=== PATIENT | male | born 1970 | race Caucasian/White ===

== ENCOUNTER 2022-10-03 19:20 | Inpatient (IN) | payer BC, SELFPAY ==
[2022-10-03] VITALS (31 sets, daily range): BP systolic 121–165; BP diastolic 76–106; PULSE 52–78; RESP 11–20; TEMP 36.1–36.9; O2SAT 95–100; BMI 24.5
--- NOTE | ~2022-10-03 | CT_ITS ---
EXAMINATION: CT abdomen pelvis wo con DATE: 10/04/2022 18:06 INDICATION: Right lower quadrant abdominal pain. Right flank pain. TECHNIQUE: Computed tomography (CT) of the abdomen and pelvis was performed without intravenous contr ast. Automated exposure control and iterative reconstruction technique were employed. The dose-length product was 816.59 mGy-cm. COMPARISON: CT abdomen 04/19/2019 FINDINGS: The visualized portions of the lung bases demonstrate mild atelectasis. No pleural effusion . The heart size is normal. There are coronary artery calcifications. No pericardial effusion. The li jammie, gallbladder, spleen, pancreas, adrenal glands, and kidneys are normal. There is an umbilical her claudia containing fat. The bladder is distended. There is diverticulosis of the colon without evidence o f diverticulitis. The appendix is normal. There are no dilated loops of bowel. There is a subcutaneou s hematoma in right inguinal region. There is subcutaneous fat stranding in anterior right abdomen, w hich may be an injection site. There are no pathologically enlarged lymph nodes. There is no free int raperitoneal fluid. There is severe lumbar spondylosis. IMPRESSION: 1. Subcutaneous hematoma in right inguinal region. Reviewed, dictated and finalized at location A. PLUG PACKER
--- NOTE | ~2022-10-03 | CT_ITS ---
EXAMINATION: CTA chest PE protocol DATE: 10/03/2022 21:18 INDICATION: Left chest pain. TECHNIQUE: Computed tomography angiography (CTA) of the chest was performed with 100 mL Omnipaque-350 intravenous contrast timed to evaluate the pulmonary arteries. Coronal maximum intensity projection 3D-reconstructions were created by the technologist. Automated exposure control and iterative reconst ruction technique were employed. The dose-length product was 517.05 mGy-cm. COMPARISON: CT abdomen 04/19/2019 FINDINGS: There is mild atelectasis bilaterally. A calcified left lung nodule and calcified left maureen r and mediastinal lymph nodes are consistent with old granulomatous disease. No pleural effusion. The re is no pulmonary embolus. There is mild thoracic spondylosis. IMPRESSION: 1. No pulmonary embolus. Reviewed, dictated and finalized at location A. ION JAILER IMPRESSION: 1. No pulmonary embolus.
--- NOTE | ~2022-10-03 | XR_ITS ---
EXAMINATION: XR chest 2V DATE: 10/03/2022 20:19 INDICATION: Chest pain. TECHNIQUE: Frontal and lateral views of the chest were obtained on 3 radiographs. COMPARISON: CT abdomen 04/19/2019 FINDINGS: The chest demonstrates clear lungs without pneumonia, pleural effusion, or pneumothorax. Th e heart size is normal. Calcified mediastinal lymph nodes are consistent with old granulomatous disea se. IMPRESSION: 1. No acute cardiopulmonary disease. Reviewed, dictated and finalized at location A. IGINAL LIAISON OFFICER
--- NOTE | 2022-10-03 19:24 | ECG_ITS ---
Measurements Intervals [place] Rate: 71 P: 24 AL: 152 QRS: 36 QRSD: 98 T: 74 QT: 399 QTc: 434 Interpretive Statements SINUS RHYTHM SUBTLE INFERIOR ST ELEVATION WITH SOME HIGH LATERAL RECIPROCAL ST DEPRESSION- CONSIDER ACUTE INJURY OR EARLY REPOLARIZATION ABNORMALITY ABNORMAL ECG NO PREVIOUS ECG AVAILABLE FOR COMPARISON Electronically Signed On 10-04-2022 7:53:48 CORN COOKER by Alex Orozco D.O.
[2022-10-03] MEDS: NITROGLYCERIN SL 0.4 MG TABLET SUBLINGUAL (19:33)
[2022-10-03] MEDS: ASPIRIN 81 MG CHEWABLE TABLET 324 MG PO (19:35)
[2022-10-03 19:36] LABS: Basophils Percent Auto 0.6 % (0.2-1.2); Eosinophils Percent Auto 0.6 % (0-4.4); Hematocrit 42.5 % (42.0-52.0); Hemoglobin 14.6 g/dL (14.0-18.0); Immature Granulocyte Absolute 0.01 K/mm3 (0.00-0.031); Immature Granulocyte Percent A 0.2 % (0-0.5); Lymphocytes Absolute Auto 2.28 K/mm3 (0.9-3.2); Lymphocytes Percent Auto 36.1 % (18.3-44.2); Mean Corpuscular HGB Conc 34.4 g/dl (32-36); Mean Corpuscular Hemoglobin 28.5 pg (26-34); Mean Platelet Volume 8.8 fl (7.4-10.4); Monocytes Absolute Auto 0.6 K/mm3 (0.1-0.6); Monocytes Percent Auto 9.3 % (2.6-8.5); Neutrophils Absolute Auto 3.4 K/mm3 (1.3-6.7); Neutrophils Percent Auto 53.2 % (45.5-73.1); Platelet Count Result 177 k/mm3 (150-375); Red Blood Count 5.12 M/mm3 (4.6-6.20); Red Cell Distribution Width 14.2 % (11.5-14.5); White Blood Count 6.3 K/mm3 (4.5-10.0)
--- NOTE | 2022-10-03 19:38 | PC.NURSE ---
2nd nitro tab given SL.
[2022-10-03] MEDS: MORPHINE SULFATE (*CRX) 2 MG/ML INJ IV PUSH (19:40)
--- NOTE | 2022-10-03 19:43 | ECG_ITS ---
Measurements Intervals [place] Rate: 46 P: [place]: 0 QRS: 48 QRSD: 122 T: 36 QT: 447 QTc: 395 Interpretive Statements JUNCTIONAL RHYTHM CHANGES TO SINUS BRADYCARDIA ABNORMAL ECG COMPARED TO ECG 10/03/2022 19:26:16 JUNCTIONAL RHYTHM CHANGES TO SINUS BRADYCARDIA NOW PRESENT ST SEGMENT CHANGES RESOLVED Electronically Signed On 10-04-2022 7:56:10 DESIGN EDITOR by Alex Orozco D.O.
[2022-10-03 19:47] LABS: Alanine Aminotransferase 25 U/L (6-50); Albumin Level 4.5 g/dL (3.5-5.1); Alkaline Phosphatase 65 U/L (38-126); Anion Gap 8 mmol/L (8-16); Aspartate Amino Transferase 32 U/L (17-59); Bilirubin,Total 0.6 mg/dL (0.2-1.3); Blood Urea Nitrogen 17 mg/dL (9-20); Calcium 9.6 mg/dL (8.4-10.2); Carbon Dioxide 24 mmol/L (22-30); Chloride 103 mmol/L (98-107); Estimated CRCL calculation 70 ml/min; Estimated Glomerular Filt Rate 58; Glucose 103 mg/dL (65-110); Lipase 132 U/L (23-300); Potassium 3.6 mmol/L (3.4-5.0); Sodium 135 mmol/L (137-145)
[2022-10-03 19:54] LABS: INR 1.1; Prothrombin Time 13.6 Seconds (11.1-14.7)
[2022-10-03 19:55] LABS: Partial Thromboplastin Time 23.6 SECONDS (22.3-36.8)
[2022-10-03 19:59] LABS: Troponin I < 0.012 ng/mL (0.000-0.034)
--- NOTE | 2022-10-03 20:06 | PC.NURSE ---
Called lab to add on d-dimer.
--- NOTE | 2022-10-03 20:11 | PC.NURSE ---
Patient taken to xray via stretcher.
[2022-10-03 20:28] LABS: D Dimer 0.48 ug/mL (<0.48)
[2022-10-03] MEDS: MORPHINE SULFATE (*CRX) 4 MG/ML INJ IV PUSH (20:54)
--- NOTE | 2022-10-03 21:06 | PC.NURSE ---
Patient taken to CT via stretcher at this time.
[2022-10-03] MEDS: SODIUM CHLORIDE 0.9% IV 1,000 ML 999 ML IV CONT (21:33)
--- NOTE | 2022-10-03 21:41 | PM.IMHP ---
H&P: HPI History of Present Illness Date/Time: 10/03/22 21:41 Chief Complaint: Chest pain Narrative: This is a 52-year-old male with past medical history significant for GERD, hypertension, coronary artery disease. Patient presents to the emergency room due to chest pain localized to the precordial area with radiation to the shoulder the arm and back 0 care who while strenuous physical activity core? sexual activity patient denies use of Viagra, denies any lightheadedness, had some nausea, but no vomiting, had diaphoresis pain lasted for 3 hours and it is ongoing, not worsening, denies any cough, sputum production, no fevers, no rigors, no chills, no syncope or near syncope no night sweats, pain is reproducible on physical exam, nitroglycerin did not relieve the pain. Patient has been in his usual state of health up until this point. Preliminary workup has been essentially nonrevealing. Patient is been admitted for further evaluation management and treatment. Review of Systems Review of Systems: Chest pain in the precordial area Constitutional: Constitutional: Denies chills, Denies fever(s), Denies malaise and Denies night sweats Eyes: Eyes: Denies change in vision ENT: Denies dysphagia, Denies nasal discharge and Denies odynophagia Cardiovascular: Cardiovascular: Reports chest pain, Denies syncope, Denies rapid heart rate, Denies irregular heart rhythm, Denies lightheadedness, Reports radiating jaw, neck or arm pain, Denies palpitations and Denies dyspnea Respiratory: Respiratory: Denies chest congestion, Denies cough, Denies pain on inspiration, Denies dyspnea and Denies wheezing Gastrointestinal: Gastrointestinal: Denies abdominal pain, Denies dyspepsia, Denies heartburn, Denies diarrhea, Denies nausea and Denies vomiting Genitourinary: Genitourinary: Denies dysuria Musculoskeletal: Musculoskeletal: Denies joint swelling and Denies muscle weakness Integumentary/Breasts: Skin/Breast: Denies rash Neurologic: Denies vertigo, Denies dizziness, Denies focal weakness, Denies radicular pain and Denies Sensory deficit (Neuro) Endocrine: Endocrine: Denies cold intolerance, Denies flushing, Denies heat intolerance, Denies polyphagia, Denies polydipsia and Denies palpitations Hematologic/Lymphatic: Hematologic/Lymphatic: Reports no additional hematologic/lymphatic complaints and Reports as per HPI Allergic/Immunologic: Allergic/Immunologic: Reports no additional allergic/immunologic complaints and Reports as per HPI [facility] Family History Family History (Updated 10/03/22 @ 23:40 by Jillian Bull RN) Grandparent Diabetes mellitus Mother Lung cancer Sibling Lung cancer Social History Social History Smoking packs per day: 2 Smoking cigarettes per day: 40.0 Years smoked: 30 Smoking pack-years: 60.00 Smoking status: Former smoker Tobacco type: cigarettes Second hand tobacco smoke exposure: Yes Smoking end date: 05/07/17 Alcohol intake: former Drinks per week: 7 Substance use: former Substance use type: does not use Other substance usage details: recovering addict Lack of Transportation: No Lack of Food: Never True Current Housing: I Have Housing Concerned About Future Housing: No Difficulty Paying Gas/Electric Bills: No Difficulty Paying for Meds: No Currently Unemployed: No Education: High School Diploma/GED Difficulty w/ Childcare or Family Care: No Spiritual care concerns: No Meds Home Medications and Allergies Home Medications Medication Instructions Recorded Confirmed Type allopurinol 100 mg tablet mg 10/03/22 History esomeprazole magnesium 20 mg mg 10/03/22 History capsule,delayed release (Nexium) ezetimibe 10 mg tablet mg 10/03/22 History gabapentin 100 mg capsule mg 10/03/22 History metoprolol tartrate 50 mg tablet mg 10/03/22 History spironolactone 50 mg tablet mg 10/03/22 History Allergies Allergy/AdvReac Type Severity Reaction St
[2022-10-03] MEDS: HYDROmorphone HCL INJ (*CRX) 1 MG/ML SYR IV PUSH (21:46)
--- NOTE | 2022-10-03 21:50 | ED.CHESTPAIN ---
HPI - Chest Pain General Chief Complaint: Chest Pain Stated Complaint: Chest Pain, arm pain Time Seen by Provider: 10/03/22 19:29 History of Present Illness HPI narrative: 52-year-old male presented emergency department for evaluation of cute onset of left-sided chest pain just prior to arrival. Patient states after he was having sexual activity he reported onset of the chest pain. Patient denied any chest pain or shortness of breath during exertion. Patient does have a history of coronary disease. Patient had a stress test back in 2018 that showed changes. Patient had an Angiocath in 2018 but had no stents placed. Patient reports he had a negative stress test about a year and a half ago that was read as normal. Patient follows up with cardiology at [facility]. Patient also reports a prior history of pulmonary embolisms and is no longer on blood thinners. Related Data Home Medications Medication Instructions Recorded Confirmed allopurinol 100 mg tablet mg 10/03/22 esomeprazole magnesium 20 mg mg 10/03/22 capsule,delayed release (Nexium) ezetimibe 10 mg tablet mg 10/03/22 gabapentin 100 mg capsule mg 10/03/22 metoprolol tartrate 50 mg tablet mg 10/03/22 spironolactone 50 mg tablet mg 10/03/22 Allergies Allergy/AdvReac Type Severity Reaction Status Date / Time No Known Allergies Allergy Verified 10/03/22 19:25 Review of Systems Review of Systems: CONSTITUTIONAL: Denies fever, chills, or sweats. EYES: Denies visual changes, redness, or discharge. ENT: Denies rhinorrhea, congestion, sore throat, or otalgia. CARDIOVASCULAR: See HPI RESPIRATORY: Denies cough or dyspnea. GASTROINTESTINAL: Denies abdominal pain, nausea, vomiting, or diarrhea. GENITOURINARY: Denies dysuria or hematuria. SKIN: Denies rash or itching. MUSCULOSKELETAL: Denies back pain, joint pain, or myalgia. NEUROLOGIC: Denies headache, numbness, or weakness. Exam Narrative: APPEARANCE: Well appearing, no pain, no distress, well-nourished. HEAD: normocephalic, atraumatic. EYES: PERRLA/EOMI, conjunctivae clear. NOSE: Normal no drainage NECK: Supple. No adenopathy, no masses. RESPIRATORY: Airway patent, respirations nonlabored. Clear to auscultation bilaterally, no rales, rhonchi, wheezing. CARDIOVASCULAR: Regular rate and rhythm without murmurs rubs or gallops. ABDOMINAL: Soft, nontender, nondistended, normal bowel sounds MUSCULOSKELETAL: Moves all extremities. Strength/ROM intact, No edema, No calf tenderness. NEURO: Alert. Cranial nerves II through XII intact. Grossly intact SKIN: Warm, dry. Normal Color Course Course Emergency Course: Patient's initial EKG did show some nonspecific ST changes. No evidence of acute STEMI. Repeat EKG 30 minutes later improvement of these ST changes possibly due to lead placement. Patient was treated with aspirin and nitro and had no improvement of his pain from the nitro. Patient's D-dimer was at the high end of normal but due to his prior history of pulmonary embolisms a CTA was ordered to rule out PE. CT was negative for pulmonary embolism. Patient's troponin was negative. Due to his significant history and description of his symptoms I discussed case with hospitalist patient was admitted for further cardiac rule out. Patient and family were updated on the results of the work-up and were comfortable with the plan for admission. Patient's pain was improved with morphine and Dilaudid. Patient was stable at time of admission. Patient was admitted to the IMU. Vital Signs Vital signs: Vital Signs Temperature 98.0 F 10/03/22 19:25 Pulse Rate 68 10/03/22 19:25 Respiratory Rate 16 10/03/22 19:25 Blood Pressure 165/106 H 10/03/22 19:25 Pulse Oximetry 98 10/03/22 19:25 Temperature 98.4 F 10/03/22 22:26 Pulse Rate 59 L 10/03/22 22:26 Respiratory Rate 17 10/03/22 22:26 Blood Pressure 139/83 10/03/22 22:26 Pulse Oximetry 98 10/03/22 22:26 MDM - Chest Pain La
--- NOTE | 2022-10-03 22:03 | PC.NURSE ---
Patient informs this nurse that I am a recovering drug addict, I'm sober now, 8years. ERP notified.
--- NOTE | 2022-10-03 22:38 | ADMGEN ---
This patient, Ozzie Lai, was admitted to IMU Room 210-01 at 2238. Patient/family oriented to hospital policies and general routines including ID bracelet, bed and alarms, visiting hours, pain management, procedures, bathroom and other care routines, personal items, smoking policy, room service/diet, and visiting hours. Information on how to activate the Rapid Response Team has been discussed. Patient/Family are encouraged to report perceived risks to care and to ask questions if they do not understand what they are told or what they should do.
[2022-10-03 23:14] LABS: Troponin I 0.064 ng/mL (0.000-0.034)
--- NOTE | 2022-10-03 23:32 | ECG_ITS ---
Measurements Intervals [place] Rate: 57 P: 38 DE: 163 QRS: 35 QRSD: 98 T: 33 QT: 429 QTc: 420 Interpretive Statements SINUS BRADYCARDIA BASELINE ARTIFACT- I, II, III, AVR, AVL, AVF BORDERLINE ECG COMPARED TO ECG 10/03/2022 19:47:27 NO SIGNIFICANT CHANGES Electronically Signed On 10-04-2022 7:56:32 PERMASTONE APPLICATOR by Alex Orozco D.O.
[2022-10-04] VITALS (68 sets, daily range): BP systolic 105–158; BP diastolic 58–98; PULSE 47–107; RESP 8–39; TEMP 36.1–36.9; O2SAT 96–100
[2022-10-04] MEDS: ENOXAPARIN 100 MG/ML SYRINGE 89 MG SUB-Q (00:38)
[2022-10-04] MEDS: diphenhydrAMINE HCl CAP 25 MG CAPSULE 50 MG PO ×3 (00:39→22:57)
[2022-10-04] MEDS: HYDROmorphone HCL INJ (*CRX) 1 MG/ML SYR IV PUSH ×4 (00:40→13:05)
--- NOTE | 2022-10-04 01:30 | ECG_ITS ---
Measurements Intervals [place] Rate: 52 P: 31 VT: 157 QRS: 37 QRSD: 105 T: 41 QT: 444 QTc: 415 Interpretive Statements SINUS BRADYCARDIA BASELINE ARTIFACT- I, II, III, AVR, AVL, AVF BORDERLINE ECG COMPARED TO ECG 10/03/2022 23:37:19 NO SIGNIFICANT CHANGES Electronically Signed On 10-04-2022 7:56:48 MOSAIC TECHNICIAN by Alex Orozco D.O.
--- NOTE | 2022-10-04 04:49 | ECG_ITS ---
Measurements Intervals [place] Rate: 64 P: 25 DC: 162 QRS: 5 QRSD: 97 T: 14 QT: 414 QTc: 428 Interpretive Statements SINUS RHYTHM CONSIDER INFERIOR INFARCT, AGE INDETERMINATE BASELINE ARTIFACT- I, II, AVR, AVL ABNORMAL ECG COMPARED TO ECG 10/04/2022 01:16:31 SINUS RHYTHM NOW PRESENT CONSIDER INFERIOR INFARCT, AGE INDETERMINATE NOW PRESENT Electronically Signed On 10-04-2022 7:58:03 MEDICAL CLAIMS SPECIALIST by Alex Orozco D.O.
[2022-10-04] MEDS: METOPROLOL TARTRATE 25 MG TABLET PO ×2 (05:58→21:27)
[2022-10-04] MEDS: ASPIRIN 81 MG CHEWABLE TABLET 324 MG PO (05:58)
[2022-10-04] MEDS: NITROGLYCERIN OINTMENT 1 INCH DOSE TRANSDERM (05:59)
[2022-10-04] MEDS: HEPARIN SODIUM 5,000 UNITS/ML VIAL 5000 UNITS IV PUSH (06:00)
[2022-10-04] MEDS: HEPARIN SOD/D5W 100 UNITS/ML 25,000 UNITS/250 ML BAG 10 UNITS IV CONT (06:03)
[2022-10-04 06:20] LABS: Basophils Percent Auto 0.5 % (0.2-1.2); Eosinophils Percent Auto 0.5 % (0-4.4); Hematocrit 37.7 % (42.0-52.0); Hemoglobin 12.8 g/dL (14.0-18.0); Immature Granulocyte Absolute 0.02 K/mm3 (0.00-0.031); Immature Granulocyte Percent A 0.3 % (0-0.5); Lymphocytes Absolute Auto 2.02 K/mm3 (0.9-3.2); Lymphocytes Percent Auto 34.9 % (18.3-44.2); Mean Corpuscular Hemoglobin 28.4 pg (26-34); Mean Corpuscular Volume 83.6 fl (80-100); Mean Platelet Volume 8.8 fl (7.4-10.4); Monocytes Absolute Auto 0.6 K/mm3 (0.1-0.6); Monocytes Percent Auto 9.5 % (2.6-8.5); Neutrophils Absolute Auto 3.1 K/mm3 (1.3-6.7); Neutrophils Percent Auto 54.3 % (45.5-73.1); Platelet Count Result 156 k/mm3 (150-375); Red Blood Count 4.51 M/mm3 (4.6-6.20); Red Cell Distribution Width 14.2 % (11.5-14.5); White Blood Count 5.8 K/mm3 (4.5-10.0)
[2022-10-04 06:36] LABS: INR 1.2; Prothrombin Time 14.8 Seconds (11.1-14.7)
[2022-10-04 06:39] LABS: Partial Thromboplastin Time 153.8 SECONDS (22.3-36.8)
--- NOTE | 2022-10-04 08:03 | PM.CNCAR ---
Assessment and Plan Assessment and plan (1) Non-ST elevation CO (NSTEMI): Code(s): I21.4 - Non-ST elevation (NSTEMI) myocardial infarction Status: Acute Plan This is a 52-year-old man with hypertension dyslipidemia and a known history of coronary artery disease which is been treated medically. He presents to the hospital with chest pain and clearly has non ST elevation CO. he has developed some small inferior Q-waves on the most recent ECG. After being notified about this this morning I started aspirin, anticoagulation, beta-blockers and nitrates. He continues to have mild ongoing chest pain. I will therefore recommend bringing him to the fish farm laborer this morning for angiography and hopeful revascularization Adama Nails MD [facility] History of Present Illness History of Present Illness Consult date/time: 10/04/22 08:03 Reason For Visit: chest pain Narrative: This is a 52-year-old patient I am seeing at the request of the hospitalist because of acute coronary syndrome/non ST elevation CO. The patient presented to our hospital's emergency room last evening with some chest pain that began at about 7:00 p.m. after sexual activity at his home. The patient states he was having a heavy pressure-like discomfort in the left precordium with radiation into the left arm. The discomfort was not associated with any air hunger or diaphoresis. The patient states he was concerned about this situation because he is known to have some coronary disease and after short time he came to the emergency room to be evaluated. In the emergency department he was treated with aspirin and nitroglycerin with some improvement in the chest pain but not resolution. His electrocardiogram was not impressively abnormal he was admitted to the hospital for further evaluation. Through the evening he has had waxing and waning chest discomfort. He has had a total of 4 troponin levels which have risen gradually the last sample done a short time ago was just over 2.9. In this setting I am seeing him in consultation. The patient states that he was found to have coronary disease in 2018 he was evaluated by appliance service supervisor up in the [facility]. He was hospitalized that year with chest pain at that hospital not found to have any cardiac problems he was found to have a pulmonary embolism. He was treated with systemic anticoagulation for 6 months and after that it was determined that he should undergo a coronary angiogram. He was free informed of mild, 50% lesions in 2 of his coronary arteries for which medical therapy was appropriately recommended. He does not have any family history of early coronary artery disease he is a former cigarette smoker having quit about 15 years ago he says that he used to abuse alcohol and illicit drugs as well but not for many years. He does carry the diagnosis of hypertension and dyslipidemia. He works at the [employer] in [place]. His initial electrocardiogram was largely unremarkable. The 2nd ECG interestingly demonstrated some AV node dysfunction with isorhythmic AV dissociation. The subsequent EKGs have demonstrated the development of small inferior Q-waves. Review of Systems Constitutional: Constitutional: Reports no additional constitutional complaints Eyes: Eyes: Reports no additional eye complaints ENT: Reports system reviewed and no additional complaints, except as documented Cardiovascular: Cardiovascular: Reports as per HPI Respiratory: Respiratory: Reports no additional respiratory complaints Gastrointestinal: Gastrointestinal: Reports no additional gastrointestinal complaints Musculoskeletal: Musculoskeletal: Reports no additional musculoskeletal complaints Integumentary/Breasts: Skin/Breast: Reports system reviewed and no additional complaints, except as docu Neurologic: Reports system reviewed and no additional complaints, except as documented Endocrine: Endocrine: Reports no additional endocrine complaints
[2022-10-04] MEDS: TICAGRELOR 90 MG TABLET 180 MG PO (08:41)
--- NOTE | 2022-10-04 10:09 | ECG_ITS ---
Measurements Intervals [place] Rate: 63 P: 28 [place]: 146 QRS: -22 QRSD: 101 T: 1 QT: 444 QTc: 456 Interpretive Statements SINUS RHYTHM INFERIOR INFARCT, AGE INDETERMINATE ABNORMAL ECG COMPARED TO ECG 10/04/2022 04:54:46 NO SIGNIFICANT CHANGES Electronically Signed On 10-04-2022 15:18:57 STEEL DIE PRESS SET UP OPERATOR by Alex Orozco D.O.
--- NOTE | 2022-10-04 10:14 | WPDCARDPROC ---
Cardiac Cath Procedure Note Date of procedure:: 10/04/22 Performing physician:: Adaam Nails MD Indication:: non ST-elevation AL Brief clinical history:: this is a 52-year-old man with history of hypertension and dyslipidemia who presents to the hospital last evening with an episode of chest pain following physical exertion. He in the emergency room was felt to have a benign-appearing ECG and troponin levels were negative. In the IMU he has had ongoing mild chest discomfort through the evening and troponin levels have trended upward to 2.9. ECG has developed small inferior Q-waves. Catheterization has been recommended in this setting Procedure Procedure performed:: coronary angiography left ventriculography PCI(RAYSA) to the proximal right coronary artery Sedation/Medication given:: fentanyl 50 mg Versed 2 mg case start time 937 case end time 10:04 a.m. sedation provided by Doris Rios RN, trained observer Access site:: right femoral artery Estimated blood loss:: 25 cc Procedure note:: patient was brought to the cardiac catheterization lab as described above he was having moderate 5/10 chest pain. He was otherwise in no significant distress. The right femoral triangle was prepared and draped in the usual fashion. Anesthesia was provided with 1% lidocaine infiltrated locally. Using the modified Seldinger technique a 6 Mauritian vascular sheath was placed. I then used a 5 Mauritian angled pigtail catheter to measure left-sided hemodynamics and inject the left ventriculogram in SZYMANSKI projection. Following this A standard 5 Mauritian FL4 catheter was used to engage and inject the left coronary artery in multiple multiple projections the 5 Mauritian JR4 catheter was used to engage and inject the right coronary artery. The cineangiograms were then reviewed and PCI of right coronary artery was recommended and carried out as detailed below. Prior to PCI the patient was anticoagulated with Angiomax bolus and infusion. He had already received aspirin and 180 mg of Brilinta on the floor after I saw him in consultation. For this reason he did not receive any additional anti-platelet therapy in the laborer car barn. Following PCI as described below the sheath was sutured into position the patient will be taken to the ICU for post mi/PCI recovery. Procedure was uncomplicated there were no evident signs of groin hematoma upon leaving the cardiac catheterization lab. Findings:: Hemodynamics: Central aortic pressure is 86 over 60 left ventricle 86/10 end-diastolic 15. There was no systolic gradient on pullback across the aortic valve. Left ventricle: The base of the inferior wall is akinetic the remainder of the LV contracts well the global ejection fraction is visually estimated to be 50-55%. The left main coronary artery is widely patent the left anterior descending is a large caliber vessel. There is a high-grade stenosis in the LAD of 80-90% this is located just following the origin of the 1st diagonal branch. The remainder of the LAD is free of significant disease. The circumflex is a large caliber vessel giving rise to the marginal branches the circumflex system angiographically has no significant coronary disease right coronary artery is large caliber and dominant to the posterior circulation is 100% occluded in the 1st portion. The right coronary artery receives scant collateral filling from the left coronary on review of the angiograms. Intervention: The RCA was engaged using a 6 Mauritian JR4 guiding catheter. I used a 0.014 BMW coronary wire to probe the occlusion segment and then successfully traverse that into the RCA. The lesion was pre-dilated using a 3 x 20 mm standard PTCA balloon at nominal pressure which restored good flow in the right coronary restore showing no significant disease distal to this and into the RPDA and RPL branches. The wire was in a small sub branch of the right coronary this was then withdr
--- NOTE | 2022-10-04 10:22 | SUR.OPER ---
Dr. Nails on phone giving report to flow coordinator.
--- NOTE | 2022-10-04 10:25 | SUR.OPER ---
O2 sats 97-98% on room air prior to leaving lab animal technologist.
--- NOTE | 2022-10-04 10:42 | PC.NURSE ---
Report given at bedside at 1030 by KENDRICK Mcmanus with the cardiac solder making laborer team.
--- NOTE | 2022-10-04 10:44 | ADMGEN ---
This patient, Ozzie Lai, was admitted to Intensive Care Unit-6 at 1033. Patient/family oriented to hospital policies and general routines including ID bracelet, bed and alarms, visiting hours, pain management, procedures, bathroom and other care routines, personal items, smoking policy, room service/diet, and visiting hours. Information on how to activate the Rapid Response Team has been discussed. Patient/Family are encouraged to report perceived risks to care and to ask questions if they do not understand what they are told or what they should do.
--- NOTE | 2022-10-04 10:45 | PC.NURSE ---
Cardiopulmonary Rehab Services flyer was given to patient.
[2022-10-04] MEDS: SODIUM CHLORIDE 0.9% IV 1,000 ML 125 ML IV CONT (10:49)
--- NOTE | 2022-10-04 10:54 | SUR.OPER ---
1038 Dr. Nails made aware that patient's girlfriend and daughter were in ICU waiting waiting for an update. He was also previously asked to address transfer orders as patient was an IMU patient and being moved to ICU post PCI.
--- NOTE | 2022-10-04 10:56 | WPDCNINT ---
Assessment and Plan Assessment and plan (1) Non-ST elevation [place] (NSTEMI): Code(s): I21.4 - Non-ST elevation (NSTEMI) myocardial infarction Status: Acute Assessment and Plan: Status post cardiac catheterization which showed 1. ? ischemic heart disease with acute myocardial infarction patient was found angiographically of total occlusion of the large dominant right coronary artery surprisingly not more dramatic electrocardiographic changes on presentation. 2.? ? Successful revascularization of this RCA stenosis using the drug-eluting stent described above with an excellent angiographic result and TIGRE 3 flow into the distal RCA.? The RV acute marginal branch remains occluded 3. ? high-grade unrelated stenosis in the proximal LAD as described above. 4.? ? Posterior /inferior hypokinesia global ejection fraction 50-55% ICU telemetry monitoring Echocardiogram Aspirin, ARB beta-jon, Brilinta, Aldactone, statin and Zetia (2) GERD (gastroesophageal reflux disease): Code(s): K21.9 - Gastro-esophageal reflux disease without esophagitis Status: Acute Assessment and Plan: Continue PPI (3) CAD (coronary artery disease): Code(s): I25.10 - Atherosclerotic heart disease of [place] coronary artery without angina pectoris Status: Acute Assessment and Plan: See above (4) Hypertension: Code(s): I10 - Essential (primary) hypertension Status: Acute Assessment and Plan: His beta-jon dose has been decreased and he has been started on low-dose losartan Aldactone will be continued (5) CKD (chronic kidney disease): Code(s): N18.9 - Chronic kidney disease, unspecified Status: Acute Assessment and Plan: Patient reports history of CKD His presentation creatinine was 1.3 Continue IV fluids for renal protection from contrast Check BMP and monitor urine output/electrolytes Plan DVT prophylaxis -patient received Angiomax and Lovenox. 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 Patient reported that his chest pain localized to the precordial area with radiation to the shoulder, left arm and back with started during strenuous ? sexual activity but patient denied use of Viagra. He denied any lightheadedness, had some nausea, but no vomiting, had diaphoresis. Pain was 9/10 achy and pressure. His initial troponin was negative and EKG was not suggestive of STEMI. He was admitted to step-down unit. He was given and a chest but his pain persisted. His serial troponin came back elevated. Cardiology was consulted. Patient was started on heparin infusion along with other cardiac medications. Patient's EKG later showed inferior lead Q-waves. Patient was taken to cardiac catheterization lab and underwent a catheterization which showed 1. ? ischemic heart disease with acute myocardial infarction patient was found angiographically of total occlusion of the large dominant right coronary artery surprisingly not more dramatic electrocardiographic changes on presentation. 2.? ? Successful revascularization of this RCA stenosis using the drug-eluting stent described above with an excellent angiographic result and TIGRE 3 flow into the distal RCA.? The RV acute marginal branch remains occluded 3. ? high-grade unrelated stenosis in the proximal LAD as described above. 4.? ? Posterior /inferior hypokinesia global ejection fraction 50-55% During the procedure patient was given fluid bolus for low blood pressure. Patient now admitted to ICU for further evaluation management.
[2022-10-04 10:58] LABS: Cholesterol 134 mg/dL (0-200); HDL Direct 33 mg/dL; Triglycerides 174 mg/dL (<150)
[2022-10-04 11:09] LABS: LDL Cholesterol Direct 72 mg/dL
[2022-10-04 11:51] LABS: Anion Gap 5 mmol/L (8-16); Blood Urea Nitrogen 11 mg/dL (9-20); Calcium 8.5 mg/dL (8.4-10.2); Carbon Dioxide 23 mmol/L (22-30); Chloride 103 mmol/L (98-107); Estimated CRCL calculation 89 ml/min; Estimated Glomerular Filt Rate > 60; Glucose 94 mg/dL (65-110); Potassium 3.7 mmol/L (3.4-5.0); Sodium 131 mmol/L (137-145)
[2022-10-04] MEDS: PANTOPRAZOLE 40 MG TABLET PO (13:30)
--- NOTE | 2022-10-04 15:50 | PM.IMPN ---
Progress Note: A&P Assessment and Plan (1) Non-ST elevation [place] (NSTEMI): Code(s): I21.4 - Non-ST elevation (NSTEMI) myocardial infarction Status: Acute Assessment and Plan: RCA stent placed, lad stenotic lesion will need addressed outpatient, EF 50-55% Currently being monitored in the ICU, continue medications per Cardiology management Appreciate critical care management Basically am doing (2) GERD (gastroesophageal reflux disease): Code(s): K21.9 - Gastro-esophageal reflux disease without esophagitis Status: Acute Assessment and Plan: Continue PPI (3) CAD (coronary artery disease): Code(s): I25.10 - Atherosclerotic heart disease of [place] coronary artery without angina pectoris Status: Acute Assessment and Plan: See above (4) Hypertension: Code(s): I10 - Essential (primary) hypertension Status: Acute Assessment and Plan: His beta-jon dose has been decreased and he has been started on low-dose losartan Aldactone will be continued (5) CKD (chronic kidney disease): Code(s): N18.9 - Chronic kidney disease, unspecified Status: Acute Assessment and Plan: Patient reports history of CKD His presentation creatinine was 1.3 Continue IV fluids for renal protection from contrast Check BMP and monitor urine output/electrolytes Plan DVT prophylaxis Angiomax and Lovenox during catheterization, will restart DVT prophylaxis with Lovenox tomorrow GI prophylaxis not indicated Code status full code Subjective Date/time seen: 10/04/22 15:50 Interval history: Patient taken to heart catheterization this morning. A high-grade lesion in the LAD was noted and will need to be corrected at a tertiary care center on outpatient basis. PCI of a 2nd lesion noted at the RCA was revascularized with a drug-eluting stent. Patient was taken to the ICU afterwards and when the sheath was removed he developed hematoma. This is now causing him some discomfort and there is a pressure dressing on it. He denies any chest pain or shortness of breath. Family at bedside and all questions answered. No nausea, vomiting or diarrhea. No fevers or chills. Review of Systems Review of Systems: 12 point review of systems was assessed and was negative except as noted in the HPI Exam Narrative: General: No acute distress, alert and oriented per baseline HEENT: Atraumatic, normocephalic, mucous membranes moist CV: Regular rate and rhythm, S1, S2 Lungs: Clear to auscultation bilaterally, no rales or crackles noted, no wheezes, good air entry Abdomen: Soft, nontender, nondistended Extremities: Normal to inspection Skin: No rashes noted, no lesions or wounds seen, hematoma with pressure dressing noted over groin area Psych: Euthymic, normal affect Objective Data Vital Signs Vital Signs: Vital Signs - 24 hr 10/03/22 19:25 10/03/22 19:28 10/03/22 19:29 Temperature 98.0 F Pulse Rate 68 71 74 Respiratory Rate 16 16 14 Blood Pressure 165/106 H 156/100 H Pulse Oximetry 98 Oxygen Delivery Oxygen Flow Rate 10/03/22 19:30 10/03/22 19:37 10/03/22 19:45 Temperature Pulse Rate 75 78 55 L Respiratory Rate 14 16 Blood Pressure 137/93 H Pulse Oximetry 99 96 96 Oxygen Delivery Oxygen Flow Rate 10/03/22 20:00 10/03/22 20:01 10/03/22 20:18 Temperature Pulse Rate 64 62 52 L Respiratory Rate 19 15 Blood Pressure 122/86 Pulse Oximetry 95 96 96 Oxygen Delivery Oxygen Flow Rate 10/03/22 20:19 10/03/22 20:30 10/03/22 20:31 Temperature Pulse Rate 58 L 55 L 61 Respiratory Rate 12 Blood Pressure 136/83 121/76 Pulse Oximetry 97 98 98 Oxygen Delivery Oxygen Flow Rate 10/03/22 20:45 10/03/22 21:00 10/03/22 21:01 Temperature Pulse Rate 64 63 62 Respiratory Rate 12 13 12 Blood Pressure 136/91 H Pulse Oximetry 99 99 100 Oxygen Delivery Oxygen Flow Rate 10/03/22 21:22 10/03/22
[2022-10-04] MEDS: HYDROcodone/acetaminophen (*CRX) 5-325 MG TABLET 1 TAB PO ×2 (18:51→22:57)
[2022-10-04] MEDS: ACETAMINOPHEN 500 MG TABLET 1000 MG PO (20:51)
[2022-10-04] MEDS: LIDOCAINE 5% PATCH 1 PATCH TRANSDERM (21:28)
[2022-10-04] MEDS: TICAGRELOR 90 MG TABLET PO (21:28)
[2022-10-05] VITALS (18 sets, daily range): BP systolic 93–122; BP diastolic 67–78; PULSE 57–91; RESP 14–28; TEMP 36.6–36.9; O2SAT 94–100
--- NOTE | 2022-10-05 | ECHO_ITS ---
Patient Info Name: Ozzie Lai Age: 52 years : 1970 Gender: Male Ht: 73 in Wt: 195 lbs BSA: 2.14 m2 HR: 78 bpm BP: 116 / 77 mmHg Heart Rhythm: Sinus Rhythm Technical Quality: Fair Exam Date: 10/05/2022 8:10 AM Exam Location: [facility] Patient Status: Inpatient Admit Date: 10/03/2022 Staff Ordering Physician: Manuel Estevez MD Oyster Washer: Elham Calderón RDCS Attending Provider: Araseli Fitzpatrick MD Exam Type: CA echo dop color flow w con Study Info Indications - IN Complete two-dimensional, color flow and Doppler transthoracic echocardiogram is performed with contrast to opacify the left ventricle and to improve the deliniation of the left ventricle endocardial borders. Contrast/Agitated Saline Contrast/Ag. Saline: Definity Amount: 3.00 ml Administered By: Elham Calderón RDCS Existing IV Access: Yes IV Access Condition: patent with no signs of infiltration Summary 1. Normal left ventricular size mild inferior hypokinesia overall vigorous ejection fraction. 2. Reduced right ventricular contractility. 3. No significant valvular dysfunction. Left Ventricle Left ventricular chamber dimension is normal. Left ventricular systolic function is normal, estimated at 65-70%. The left ventricular diastolic function is normal. Right Ventricle Right ventricular chamber dimension is normal. Right ventricular systolic function is reduced. Left Atria Left atrial chamber dimension is normal. Right Atria Right atrial chamber dimension is normal. Aortic Valve The aortic valve is normal. Pulmonic Valve The pulmonic valve is not well visualized. Mitral Valve The mitral valve has normal leaflets. Tricuspid Valve The tricuspid valve leaflets are normal. Pericardium/Pleural The pericardium appears normal. Aorta The aortic root size at the sinus of Valsalva is normal. Left Ventricular Outflow Tract Name Value Normal LVOT 2D LVOT Diameter 2.00 cm LVOT Doppler LVOT Peak Gradient 3 mmHg LVOT Mean Gradient 2 mmHg LVOT VTI 14.11 cm LVOT VTI/AV VTI Ratio 0.78 LVOT Stroke Volume 44.22 ml LVOT CO 3.65 l/min LVOT CI 1.70 L/min/m2 Pulmonic Valve Name Value Normal RVOT Doppler RVOT Peak Gradient 1 mmHg PV Doppler PV Peak Gradient 2 mmHg Mitral Valve Name Value Normal
[2022-10-05] MEDS: HYDROcodone/acetaminophen (*CRX) 5-325 MG TABLET 1 TAB PO ×4 (03:02→20:04)
[2022-10-05 04:33] LABS: Basophils Percent Auto 0.6 % (0.2-1.2); Eosinophils Absolute Auto 0.1 K/mm3 (0-0.3); Eosinophils Percent Auto 1.1 % (0-4.4); Hematocrit 38.6 % (42.0-52.0); Hemoglobin 12.8 g/dL (14.0-18.0); Immature Granulocyte Absolute 0.02 K/mm3 (0.00-0.031); Immature Granulocyte Percent A 0.4 % (0-0.5); Lymphocytes Absolute Auto 1.66 K/mm3 (0.9-3.2); Lymphocytes Percent Auto 35.7 % (18.3-44.2); Mean Corpuscular HGB Conc 33.2 g/dl (32-36); Mean Corpuscular Hemoglobin 28.4 pg (26-34); Mean Corpuscular Volume 85.6 fl (80-100); Mean Platelet Volume 8.6 fl (7.4-10.4); Monocytes Absolute Auto 0.5 K/mm3 (0.1-0.6); Monocytes Percent Auto 9.9 % (2.6-8.5); Neutrophils Absolute Auto 2.4 K/mm3 (1.3-6.7); Neutrophils Percent Auto 52.3 % (45.5-73.1); Platelet Count Result 145 k/mm3 (150-375); Red Blood Count 4.51 M/mm3 (4.6-6.20); Red Cell Distribution Width 14.4 % (11.5-14.5); White Blood Count 4.7 K/mm3 (4.5-10.0)
[2022-10-05 04:44] LABS: Alanine Aminotransferase 25 U/L (6-50); Albumin Level 3.8 g/dL (3.5-5.1); Alkaline Phosphatase 56 U/L (38-126); Anion Gap 5 mmol/L (8-16); Aspartate Amino Transferase 72 U/L (17-59); Bilirubin,Total 0.6 mg/dL (0.2-1.3); Blood Urea Nitrogen 10 mg/dL (9-20); Calcium 8.6 mg/dL (8.4-10.2); Carbon Dioxide 26 mmol/L (22-30); Chloride 104 mmol/L (98-107); Estimated CRCL calculation 89 ml/min; Estimated Glomerular Filt Rate > 60; Glucose 102 mg/dL (65-110); Phosphorus 3.7 mg/dL (2.5-4.5); Potassium 3.7 mmol/L (3.4-5.0); Sodium 135 mmol/L (137-145)
--- NOTE | 2022-10-05 05:11 | ECG_ITS ---
Measurements Intervals [place] Rate: 73 P: 25 IN: 155 QRS: -15 QRSD: 100 T: -2 QT: 413 QTc: 456 Interpretive Statements SINUS RHYTHM INFERIOR INFARCT, AGE INDETERMINATE ABNORMAL ECG COMPARED TO ECG 10/04/2022 10:35:44 NO SIGNIFICANT CHANGES Electronically Signed On 10-05-2022 12:02:17 [employer]OC[employer] OPERATOR by Alex Orozco D.O.
[2022-10-05] MEDS: PERFLUTREN LIPID MICROSPHERES 1.5 ML VIAL DILUTED TO 10 ML TOTAL VOLUME IV PUSH (08:40)
--- NOTE | 2022-10-05 08:41 | IVDEFINITY ---
Prior to administration of IV Definity the patient was educated on the risks and benefits of the imaging enhancing agent including potential adverse side effects. The patient verbalized understanding. Allergies were verified. No exclusion criteria were identified and at least one of the following inclusion criteria were met: 1) physician request, 2) patient technically difficult to image (per the [place] [employer] Echocardi[employer] guidelines of two or more segments not discernable within the apical view), or 3) questionable left ventricular function. ?
[2022-10-05] MEDS: PANTOPRAZOLE 40 MG TABLET PO (08:47)
[2022-10-05] MEDS: METOPROLOL TARTRATE 25 MG TABLET PO ×2 (08:47→20:06)
[2022-10-05] MEDS: ASPIRIN 81 MG CHEWABLE TABLET PO (08:47)
[2022-10-05] MEDS: ACETAMINOPHEN 500 MG TABLET 1000 MG PO ×2 (08:48→17:52)
[2022-10-05] MEDS: TICAGRELOR 90 MG TABLET PO ×2 (08:48→20:05)
[2022-10-05] MEDS: LOSARTAN POTASSIUM 12.5 MG TABLET PO (09:00)
[2022-10-05] MEDS: EZETIMIBE 10 MG TABLET PO (09:00)
[2022-10-05] MEDS: ROSUVASTATIN 10 MG TABLET 20 MG PO (09:00)
[2022-10-05] MEDS: SPIRONOLACTONE 25 MG TABLET PO (09:01)
--- NOTE | 2022-10-05 09:22 | PM.IMPN ---
Progress Note: A&P Assessment and Plan (1) Non-ST elevation [place] (NSTEMI): Code(s): I21.4 - Non-ST elevation (NSTEMI) myocardial infarction Status: Acute Assessment and Plan: RCA stent placed, LAD stenotic lesion will need addressed outpatient, EF 50-55% Currently being monitored in the ICU, continue medications per Cardiology management Downgrade when appropriate, d/c planning per cardio recs (2) GERD (gastroesophageal reflux disease): Code(s): K21.9 - Gastro-esophageal reflux disease without esophagitis Status: Acute Assessment and Plan: Continue PPI (3) CAD (coronary artery disease): Code(s): I25.10 - Atherosclerotic heart disease of [place] coronary artery without angina pectoris Status: Acute Assessment and Plan: See above (4) Hypertension: Code(s): I10 - Essential (primary) hypertension Status: Acute Assessment and Plan: His beta-jon dose has been decreased and he has been started on low-dose losartan Aldactone will be continued (5) CKD (chronic kidney disease): Code(s): N18.9 - Chronic kidney disease, unspecified Status: Acute Assessment and Plan: Patient reports history of CKD, stable, at baseline Plan DVT prophylaxis with lovenox GI prophylaxis not indicated Code status full code Subjective Date/time seen: 10/05/22 09:22 Interval history: No overnight events noted. No chest pain or shortness of breath. No nausea, vomiting or diarrhea. No fevers or chills. Abdominal pain resolved. Review of Systems Review of Systems: 12 point review of systems was assessed and was negative except as noted in the HPI Exam Narrative: General: No acute distress, alert and oriented per baseline HEENT: Atraumatic, normocephalic, mucous membranes moist CV: Regular rate and rhythm, S1, S2 Lungs: Clear to auscultation bilaterally, no rales or crackles noted, no wheezes, good air entry Abdomen: Soft, nontender, nondistended Extremities: Normal to inspection, hematoma improving Skin: No rashes noted, no lesions or wounds seen, hematoma with pressure dressing noted over groin area Psych: Euthymic, normal affect Objective Data Vital Signs Vital Signs: Vital Signs - 24 hr 10/04/22 10:33 10/04/22 10:45 10/04/22 13:06 Temperature 97.7 F Pulse Rate 65 62 62 Respiratory Rate 8 L 8 L 36 H Blood Pressure 118/69 106/78 122/85 Pulse Oximetry 97 97 100 Oxygen Delivery 10/04/22 13:08 10/04/22 13:12 10/04/22 13:00 Temperature Pulse Rate 67 75 74 Respiratory Rate 20 20 15 Blood Pressure 125/86 109/86 122/85 Pulse Oximetry 100 100 100 Oxygen Delivery 10/04/22 13:15 10/04/22 13:10 10/04/22 13:10 Temperature Pulse Rate 76 66 66 Respiratory Rate 13 20 20 Blood Pressure 111/86 109/86 109/86 Pulse Oximetry 99 100 100 Oxygen Delivery 10/04/22 13:20 10/04/22 13:26 10/04/22 13:31 Temperature Pulse Rate 78 79 78 Respiratory Rate 12 15 13 Blood Pressure 124/98 H 122/96 H 119/85 Pulse Oximetry 100 100 99 Oxygen Delivery 10/04/22 13:36 10/04/22 13:40 10/04/22 13:46 Temperature Pulse Rate 83 71 74 Respiratory Rate 19 13 15 Blood Pressure 111/70 123/85 129/82 Pulse Oximetry 100 100 100 Oxygen Delivery 10/04/22 13:50 10/04/22 13:51 10/04/22 14:21 Temperature Pulse Rate 72 70 78 Respiratory Rate 15 18 18 Blood Pressure 110/72 120/87 119/85 Pulse Oximetry 99 100 100 Oxygen Delivery 10/04/22 15:21 10/04/22 16:21 10/04/22 17:21 Temperature Pulse Rate 70 92 107 H Respiratory Rate 33 H 39 H 18 Blood Pressure 119/78 130/82 125/83 Pulse Oximetry 99 99 99 Oxygen Delivery 10/04/22 15:54 10/04/22 18:18 10/04/22 18:21 Temperature 97.7 F Pulse Rate 70 101 H 98 Respiratory Rate 33 H 19 20 Blood Pressure 119/78 128/80 158/91 H Pulse Oximetry 99 100 98 Oxygen Delivery 10/04/22 12:00 10/04/22 14:00 10/04/22 16:00 Temperature Pulse Rate 64 7
--- NOTE | 2022-10-05 11:14 | IVDEFINITY ---
Prior to administration of IV Definity the patient was educated on the risks and benefits of the imaging enhancing agent including potential adverse side effects. The patient verbalized understanding. Allergies were verified. No exclusion criteria were identified and at least one of the following inclusion criteria were met: 1) physician request, 2) patient technically difficult to image (per the [place] [employer] Echocardiography guidelines of two or more segments not discernable within the apical view), or 3) questionable left ventricular function. ?
--- NOTE | 2022-10-05 12:56 | PM.PNCARD ---
Progress Note: A&P Assessment and Plan (1) Non-ST elevation [place] (NSTEMI): Code(s): I21.4 - Non-ST elevation (NSTEMI) myocardial infarction Status: Acute Assessment and Plan: Presents with chest pain and was found to have an 80-90% mid LAD lesion and a totally occluded RCA which was stented. He was stable overnight and had no major procedural complications. He does not have any ongoing chest pain. Continue DAPT with ASA, Brilinta Continue high intensity statin Continue losartan, metoprolol, spironolactone Continue telemetry OK to downgrade to IMU Probably discharge tomorrow if he remains stable Follows with Dr. Bello, will decide if he wants to follow with us or remain with Dr. Bello Subjective Date/time seen: 10/05/22 12:56 Cardiology follow up for CAD, NSTEMI Feeling well this afternoon. Only complaint is some tenderness in his left groin at arterial access site. No chest pain, shortness of breath. Review of Systems Constitutional: Constitutional: Reports no additional constitutional complaints Eyes: Eyes: Reports no additional eye complaints ENT: Reports system reviewed and no additional complaints, except as documented Cardiovascular: Cardiovascular: Reports as per HPI Respiratory: Respiratory: Reports no additional respiratory complaints Gastrointestinal: Gastrointestinal: Reports no additional gastrointestinal complaints Musculoskeletal: Musculoskeletal: Reports no additional musculoskeletal complaints Integumentary/Breasts: Skin/Breast: Reports system reviewed and no additional complaints, except as docu Neurologic: Reports system reviewed and no additional complaints, except as documented Endocrine: Endocrine: Reports no additional endocrine complaints Hematologic/Lymphatic: Hematologic/Lymphatic: Reports no additional hematologic/lymphatic complaints Allergic/Immunologic: Allergic/Immunologic: Reports no additional allergic/immunologic complaints Exam Const: Other: Well-developed well-nourished white male sitting comfortably in the chair watching TV HENMT: Mouth: Yes moist mucous membranes Eyes: Sclera: sclerae normal Pupils: Equal, round and reactive pupils present Neck: Neck: supple and no JVD Carotids: normal carotid upstroke and no bruits Resp: Effort & Inspection: normal respiratory effort Auscultation: clear to auscultation bilaterally Cardio: Rate: regular rate Rhythm: regular rhythm Heart sounds: S1 normal heart sound present, S2 normal heart sound present, no gallops, no murmurs and no rubs GI: Auscultation: normal bowel sounds Skin: General skin exam: normal color Neuro: Cranial nerves: Yes Equal, round and reactive pupils present Other: Alert and oriented x3 Extrem: Other: R groin arterial access site with some surrounding ecchymosis and mild tenderness. Skin soft, no hematoma. No edema, adequate perfusion Objective Data Vital Signs Vital Signs: Vital Signs - 24 hr 10/04/22 13:06 10/04/22 13:08 10/04/22 13:12 Temperature Pulse Rate 62 67 75 Respiratory Rate 36 H 20 20 Blood Pressure 122/85 125/86 109/86 Pulse Oximetry 100 100 100 Oxygen Delivery 10/04/22 13:00 10/04/22 13:15 10/04/22 13:10 Temperature Pulse Rate 74 76 66 Respiratory Rate 15 13 20 Blood Pressure 122/85 111/86 109/86 Pulse Oximetry 100 99 100 Oxygen Delivery 10/04/22 13:10 10/04/22 13:20 10/04/22 13:26 Temperature Pulse Rate 66 78 79 Respiratory Rate 20 12 15 Blood Pressure 109/86 124/98 H 122/96 H Pulse Oximetry 100 100 100 Oxygen Delivery 10/04/22 13:31 10/04/22 13:36 10/04/22 13:40 Temperature Pulse Rate 78 83 71 Respiratory Rate 13 19 13 Blood Pressure 119/85 111/70 123/85 Pulse Oximetry 99 100 100 Oxygen Delivery 10/04/22 13:46 10/04/22 13:50 10/04/22 13:51 Temperature Pulse Rate 74 72 70 Respiratory Rate 15 15 18 Blood Pressure 129/82 110/72 120/87 Pulse Oximetry 100 99 100 Oxygen Delivery
--- NOTE | 2022-10-05 13:33 | WPDINTPN ---
Progress Note: A&P Assessment and Plan (1) Non-ST elevation [place] (NSTEMI): Code(s): I21.4 - Non-ST elevation (NSTEMI) myocardial infarction Status: Acute Assessment and Plan: Status post cardiac catheterization which showed 1. ? ischemic heart disease with acute myocardial infarction patient was found angiographically of total occlusion of the large dominant right coronary artery surprisingly not more dramatic electrocardiographic changes on presentation. 2.? ? Successful revascularization of this RCA stenosis using the drug-eluting stent described above with an excellent angiographic result and TIGRE 3 flow into the distal RCA.? The RV acute marginal branch remains occluded 3. ? high-grade unrelated stenosis in the proximal LAD as described above. 4.? ? Posterior /inferior hypokinesia global ejection fraction 50-55% ICU telemetry monitoring Echocardiogram has been performed, report is pending Aspirin, ARB beta-jon, Brilinta, Aldactone, statin and Zetia (2) CAD (coronary artery disease): Code(s): I25.10 - Atherosclerotic heart disease of [place] coronary artery without angina pectoris Status: Acute Assessment and Plan: See above (3) GERD (gastroesophageal reflux disease): Code(s): K21.9 - Gastro-esophageal reflux disease without esophagitis Status: Acute Assessment and Plan: Continue PPI (4) Hypertension: Code(s): I10 - Essential (primary) hypertension Status: Acute Assessment and Plan: His beta-jon dose has been decreased and he has been started on low-dose losartan Aldactone will be continued (5) CKD (chronic kidney disease): Code(s): N18.9 - Chronic kidney disease, unspecified Status: Acute Assessment and Plan: Patient reports history of CKD Creatinine on admission was 1.3, this time a 1.0, continue to monitor He did get IV fluids for renal protection from contrast Continue to monitor urine output/electrolytes Plan DVT prophylaxis -or Lovenox due to hematoma on the angiogram site Stress ulcer prophylaxis -continue PPI Nutrition -heart healthy diet Code Status - Full Code Discussed with patient in this condition and plan of care. Will likely move out of the ICU today Subjective Date/time seen: 10/05/22 13:33 Interval history: This is a 52-year-old man with hypertension dyslipidemia and a known history of coronary artery disease which is been treated medically, presented the hospital with chest pain and clearly had non ST-elevation CO. status post PTCA/PCI with RAYSA x1 to RCA. EF 50-55% Patient seen and examined this morning, denies any chest pain, shortness on breath, abdominal pain, nausea, vomiting. States he has some back pain because he had to lay flat but that has improved. Tolerating p.o. diet, adequate urine output, afebrile, hemodynamically stable Review of Systems Review of Systems: All systems reviewed & are unremarkable except as noted in HPI and below (HPI) Exam Narrative: General: Pt is alert awake and in NAD Lungs/Chest: Trachea central Clear BS B/L, No crackles or wheezing. Cardiac: RRR. Normal S1 S2. No murmurs Circulation: Pedal pulses are intact and symmetrical. Abdomen: Normal bowel sounds.. Soft. NT. ND. Extremities: No clubbing, cyanosis or edema. Small hematoma which has regressed at the angiogram site in the right groin : Hu in place Neurologic: Follows commands. Moves all 4 extremities PERRL AO x3 Skin: No Rash Objective Data Vital Signs Vital Signs: Vital Signs - 24 hr 10/04/22 13:36 10/04/22 13:40 10/04/22 13:46 Temperature Pulse Rate 83 71 74 Respiratory Rate 19 13 15 Blood Pressure 111/70 123/85 129/82 Pulse Oximetry 100 100 100 Oxygen Delivery 10/04/22 13:50 10/04/22 13:51 10/04/22 14:21 Temperature Pulse Rate 72 70 78 Respiratory Rate 15 18 18 Blood Pressure 110/72 120/87 119/85 Pulse Oximetry 99 100 100 Oxygen Delivery 10/04/22 15:21
[2022-10-06] VITALS: BP 121/68; PULSE 73; PULSE 75; RESP 18; TEMP 36.6; O2SAT 99
[2022-10-06] MEDS: HYDROcodone/acetaminophen (*CRX) 5-325 MG TABLET 1 TAB PO ×3 (00:10→08:24)
[2022-10-06] MEDS: diphenhydrAMINE HCl CAP 25 MG CAPSULE 50 MG PO (00:10)
[2022-10-06 02:00] VITALS: PULSE 74
[2022-10-06 04:00] VITALS: BP 112/80; PULSE 58; RESP 16; TEMP 36.3; O2SAT 100
[2022-10-06 04:44] LABS: Hematocrit 36.2 % (42.0-52.0); Hemoglobin 12.1 g/dL (14.0-18.0); Mean Corpuscular HGB Conc 33.4 g/dl (32-36); Mean Corpuscular Hemoglobin 28.1 pg (26-34); Mean Corpuscular Volume 84.2 fl (80-100); Mean Platelet Volume 9.2 fl (7.4-10.4); Platelet Count Result 147 k/mm3 (150-375); Red Cell Distribution Width 14.5 % (11.5-14.5); White Blood Count 4.2 K/mm3 (4.5-10.0)
[2022-10-06 04:56] LABS: Alanine Aminotransferase 22 U/L (6-50); Albumin Level 3.6 g/dL (3.5-5.1); Alkaline Phosphatase 54 U/L (38-126); Anion Gap 4 mmol/L (8-16); Aspartate Amino Transferase 40 U/L (17-59); Bilirubin,Total 0.5 mg/dL (0.2-1.3); Blood Urea Nitrogen 13 mg/dL (9-20); Calcium 8.8 mg/dL (8.4-10.2); Carbon Dioxide 29 mmol/L (22-30); Chloride 104 mmol/L (98-107); Estimated CRCL calculation 81 ml/min; Estimated Glomerular Filt Rate > 60; Glucose 101 mg/dL (65-110); Potassium 3.9 mmol/L (3.4-5.0); Sodium 137 mmol/L (137-145)
[2022-10-06 06:00] VITALS: PULSE 53
--- NOTE | 2022-10-06 07:59 | PM.IMPN ---
Progress Note: A&P Assessment and Plan (1) Non-ST elevation [place] (NSTEMI): Code(s): I21.4 - Non-ST elevation (NSTEMI) myocardial infarction Status: Acute Assessment and Plan: RCA stent placed, LAD stenotic lesion will need addressed outpatient, EF 50-55% Currently being monitored in the ICU, continue medications per Cardiology management Downgrade when appropriate, d/c planning per cardio recs (2) GERD (gastroesophageal reflux disease): Code(s): K21.9 - Gastro-esophageal reflux disease without esophagitis Status: Acute Assessment and Plan: Continue PPI (3) CAD (coronary artery disease): Code(s): I25.10 - Atherosclerotic heart disease of [place] coronary artery without angina pectoris Status: Acute Assessment and Plan: See above (4) Hypertension: Code(s): I10 - Essential (primary) hypertension Status: Acute Assessment and Plan: His beta-jon dose has been decreased and he has been started on low-dose losartan Aldactone will be continued (5) CKD (chronic kidney disease): Code(s): N18.9 - Chronic kidney disease, unspecified Status: Acute Assessment and Plan: Patient reports history of CKD, stable, at baseline Plan DVT prophylaxis with lovenox GI prophylaxis not indicated Code status full code Subjective Date/time seen: 10/06/22 07:59 Interval history: No overnight events noted. No chest pain or shortness of breath. No nausea, vomiting or diarrhea. No fevers or chills. Abdominal pain resolved. Review of Systems Review of Systems: 12 point review of systems was assessed and was negative except as noted in the HPI Exam Narrative: General: No acute distress, alert and oriented per baseline HEENT: Atraumatic, normocephalic, mucous membranes moist CV: Regular rate and rhythm, S1, S2 Lungs: Clear to auscultation bilaterally, no rales or crackles noted, no wheezes, good air entry Abdomen: Soft, nontender, nondistended Extremities: Normal to inspection, hematoma improving Skin: No rashes noted, no lesions or wounds seen, hematoma with pressure dressing noted over groin area Psych: Euthymic, normal affect Objective Data Vital Signs Vital Signs: Vital Signs - 24 hr 10/05/22 08:47 10/05/22 08:57 10/05/22 08:00 Temperature Pulse Rate 91 79 Respiratory Rate Blood Pressure Pulse Oximetry 97 Oxygen Delivery Room Air 10/05/22 08:00 10/05/22 10:00 10/05/22 10:00 Temperature Pulse Rate 60 60 Respiratory Rate 14 Blood Pressure 108/71 Pulse Oximetry 97 94 Oxygen Delivery Room Air 10/05/22 11:52 10/05/22 12:00 10/05/22 12:00 Temperature Pulse Rate 80 80 80 Respiratory Rate 14 18 Blood Pressure 93/67 L Pulse Oximetry 94 100 Oxygen Delivery Room Air 10/05/22 13:29 10/05/22 14:00 10/05/22 16:00 Temperature Pulse Rate 65 86 Respiratory Rate Blood Pressure 116/77 Pulse Oximetry Oxygen Delivery 10/05/22 16:00 10/05/22 16:00 10/05/22 16:00 Temperature Pulse Rate 80 86 79 Respiratory Rate 14 18 28 H Blood Pressure 110/74 110/74 Pulse Oximetry 94 100 100 Oxygen Delivery Room Air 10/05/22 18:00 10/05/22 20:06 10/05/22 20:00 Temperature Pulse Rate 87 81 87 Respiratory Rate Blood Pressure Pulse Oximetry Oxygen Delivery 10/05/22 20:00 10/05/22 20:00 10/05/22 22:00 Temperature 97.9 F Pulse Rate 87 63 Respiratory Rate 16 Blood Pressure 122/70 Pulse Oximetry 98 Oxygen Delivery Room Air 10/06/22 00:00 10/06/22 00:00 10/06/22 00:00 Temperature 97.9 F Pulse Rate 73 75 Respiratory Rate 18 Blood Pressure 121/68 Pulse Oximetry 99 Oxygen Delivery Room Air 10/06/22 02:00 10/06/22 04:00 10/06/22 06:00 Temperature Pulse Rate 74 58 L 53 L Respiratory Rate Blood Pressure Pulse Oximetry Oxygen Delivery 10/06/22 04:00 10/06/22 04:00 Temperature 97.3 F L Pulse
[2022-10-06 08:00] VITALS: BP 116/72; PULSE 75; PULSE 77; RESP 12; TEMP 36.7; O2SAT 99
[2022-10-06 08:23] VITALS: PULSE 76
[2022-10-06] MEDS: METOPROLOL TARTRATE 25 MG TABLET PO (08:23)
[2022-10-06] MEDS: LOSARTAN POTASSIUM 12.5 MG TABLET PO (08:23)
[2022-10-06] MEDS: PANTOPRAZOLE 40 MG TABLET PO (08:23)
[2022-10-06] MEDS: ASPIRIN 81 MG CHEWABLE TABLET PO (08:23)
[2022-10-06] MEDS: EZETIMIBE 10 MG TABLET PO (08:23)
[2022-10-06] MEDS: TICAGRELOR 90 MG TABLET PO (08:23)
[2022-10-06] MEDS: SPIRONOLACTONE 25 MG TABLET PO (08:23)
[2022-10-06] MEDS: ROSUVASTATIN 10 MG TABLET 20 MG PO (08:23)
--- NOTE | 2022-10-06 11:46 | PM.PNCARD ---
Progress Note: A&P Assessment and Plan (1) Non-ST elevation [place] (NSTEMI): Code(s): I21.4 - Non-ST elevation (NSTEMI) myocardial infarction Status: Acute Assessment and Plan: Presents with chest pain and was found to have an 80-90% mid LAD lesion and a totally occluded RCA which was stented. He was stable overnight and had no major procedural complications. He does not have any ongoing chest pain. Continue DAPT with ASA, Brilinta Continue high intensity statin Continue losartan, metoprolol, spironolactone Continue telemetry OK to downgrade to IMU Probably discharge tomorrow if he remains stable Follows with Dr. Bello, will decide if he wants to follow with us or remain with Dr. Bello Subjective Date/time seen: 10/06/22 09:15 Cardiology follow up for NSTEMI He is feeling well this morning. Sitting up in the chair. He denies any recurrence of chest pain. Review of Systems Constitutional: Constitutional: Reports no additional constitutional complaints Eyes: Eyes: Reports no additional eye complaints ENT: Reports system reviewed and no additional complaints, except as documented Cardiovascular: Cardiovascular: Reports as per HPI Respiratory: Respiratory: Reports no additional respiratory complaints Gastrointestinal: Gastrointestinal: Reports no additional gastrointestinal complaints Musculoskeletal: Musculoskeletal: Reports no additional musculoskeletal complaints Integumentary/Breasts: Skin/Breast: Reports system reviewed and no additional complaints, except as docu Neurologic: Reports system reviewed and no additional complaints, except as documented Endocrine: Endocrine: Reports no additional endocrine complaints Hematologic/Lymphatic: Hematologic/Lymphatic: Reports no additional hematologic/lymphatic complaints Allergic/Immunologic: Allergic/Immunologic: Reports no additional allergic/immunologic complaints Exam Const: Other: Well-developed well-nourished white male sitting comfortably in the chair watching TV HENMT: Mouth: Yes moist mucous membranes Eyes: Sclera: sclerae normal Pupils: Equal, round and reactive pupils present Neck: Neck: supple and no JVD Carotids: normal carotid upstroke and no bruits Other: Carotid pulses are intact bilaterally and are free of any bruits Resp: Effort & Inspection: normal respiratory effort Auscultation: clear to auscultation bilaterally Cardio: Rate: regular rate Rhythm: regular rhythm Heart sounds: S1 normal heart sound present, S2 normal heart sound present, no gallops, no murmurs and no rubs Other: The PMI is not displaced first and second heart sounds are normal no audible murmur gallop or rub GI: Auscultation: normal bowel sounds Skin: General skin exam: normal color Neuro: Cranial nerves: Yes Equal, round and reactive pupils present Other: Alert and oriented x3 Extrem: Other: R groin arterial access site with some surrounding ecchymosis and mild tenderness. Skin soft, no hematoma. No edema, adequate perfusion Objective Data Vital Signs Vital Signs: Vital Signs - 24 hr 10/05/22 11:52 10/05/22 12:00 10/05/22 12:00 Temperature Pulse Rate 80 80 80 Respiratory Rate 14 18 Blood Pressure 93/67 L Pulse Oximetry 94 100 Oxygen Delivery Room Air 10/05/22 13:29 10/05/22 14:00 10/05/22 16:00 Temperature Pulse Rate 65 86 Respiratory Rate Blood Pressure 116/77 Pulse Oximetry Oxygen Delivery 10/05/22 16:00 10/05/22 16:00 10/05/22 16:00 Temperature Pulse Rate 80 86 79 Respiratory Rate 14 18 28 H Blood Pressure 110/74 110/74 Pulse Oximetry 94 100 100 Oxygen Delivery Room Air 10/05/22 18:00 10/05/22 20:06 10/05/22 20:00 Temperature Pulse Rate 87 81 87 Respiratory Rate Blood Pressure Pulse Oximetry Oxygen Delivery 10/05/22 20:00 10/05/22 20:00 10/05/22 22:00 Temperature 36.6 C Pulse Rate 87 63 Respiratory Rate 16 Blood Pressure 122/70
--- NOTE | 2022-10-06 14:04 | PM.DS ---
DS: Admitting Diagnosis Discharge Date 10/06/22 Admitting Diagnosis chest pain DS: Discharge Diagnosis Discharge Diagnosis (1) Non-ST elevation [place] (NSTEMI): Code(s): I21.4 - Non-ST elevation (NSTEMI) myocardial infarction Status: Acute Assessment and Plan: RCA stent placed, LAD stenotic lesion will need addressed outpatient, EF 50-55% Currently being monitored in the ICU, continue medications per Cardiology management Downgrade when appropriate, d/c planning per cardio recs (2) GERD (gastroesophageal reflux disease): Code(s): K21.9 - Gastro-esophageal reflux disease without esophagitis Status: Acute Assessment and Plan: Continue PPI (3) CAD (coronary artery disease): Code(s): I25.10 - Atherosclerotic heart disease of [place] coronary artery without angina pectoris Status: Acute Assessment and Plan: See above (4) Hypertension: Code(s): I10 - Essential (primary) hypertension Status: Acute Assessment and Plan: His beta-jon dose has been decreased and he has been started on low-dose losartan Aldactone will be continued (5) CKD (chronic kidney disease): Code(s): N18.9 - Chronic kidney disease, unspecified Status: Acute Assessment and Plan: Patient reports history of CKD, stable, at baseline Plan DVT prophylaxis with lovenox GI prophylaxis not indicated Code status full code DS: Summary Hospital Course Hospital Course: 52-year-old male with past medical history significant for GERD, hypertension, coronary artery disease.? Patient presents to the emergency room due to chest pain localized to the precordial area with radiation to the shoulder, arm and back with strenuous physical activity. EKG was abnormal, Cardiology was consulted and recommended heart catheterization. He was found to have an 80-90% mid LAD lesion and a totally occluded RCA which was stented. He will be discharged on dual anti-platelet therapy with aspirin and Brilinta, high-intensity statin, losartan, metoprolol, Aldactone. Plan is for him to follow-up outpatient for evaluation and possible high risk intervention of the lad lesion. Time Spent with Patient Time attestation: Total time spent providing and/or coordinating discharge services: Exam Narrative: General: No acute distress, alert and oriented per baseline HEENT: Atraumatic, normocephalic, mucous membranes moist CV: Regular rate and rhythm, S1, S2 Lungs: Clear to auscultation bilaterally, no rales or crackles noted, no wheezes, good air entry Abdomen: Soft, nontender, nondistended Extremities: Normal to inspection, hematoma improving Skin: No rashes noted, no lesions or wounds seen, hematoma with pressure dressing noted over groin area Psych: Euthymic, normal affect DS: Data Data Completed and Pending Labs on day of discharge: Labs from last 24 hours 10/06/22 10/06/22 04:30 04:30 WBC 4.2 L RBC 4.30 L Hgb 12.1 L Hct 36.2 L MCV 84.2 MCH 28.1 MCHC 33.4 RDW 14.5 Plt Count 147 L MPV 9.2 Sodium 137 Potassium 3.9 Chloride 104 Carbon Dioxide 29 Anion Gap 4 L BUN 13 Creatinine 1.10 Estim Creat Clear Calc 81 Estimated GFR > 60 Glucose 101 Calcium 8.8 Phosphorus 4.0 Magnesium 2.0 Total Bilirubin 0.5 AST 40 ALT 22 Alkaline Phosphatase 54 Total Protein 6.0 L Albumin 3.6 Discharge Plan Discharge Attending physician on discharge: Joelle Evangelista Consulting providers: Adama Nails ; Manuel Estevez Discharging Clinician: Joelle Evangelista Patient Disposition: Home, Self-Care Activity: as tolerated Diet: as tolerated Wound Care Instructions: other - see discharge instructions Discharge Instructions: Please see cardiology for post cath instructions and follow up for further care of LAD lesion
== END 2022-10-06 12:00 | disposition home or self-care (01) | DRG 247 ==
LOC: ANHED 20:01 → ANHIMU 22:14 → ANHICU 10-04 10:30
PROVIDERS: Internal Medicine; Specialist; Admitting Provider Internal Medicine; Emergency Provider Emergency Medicine; PCP Nurse Practitioner Family; Visit Provider Student in an Organized Health Care Education/Training Program
PROC: 4A023N7 Measurement of Cardiac Sampling and Pressure, Left Heart, Percutaneous Approach (ICD-10-PCS; CPT 93452; principal; 2022-10-04 08:40)
PROC: 027034Z Dilation of Coronary Artery, One Artery with Drug-eluting Intraluminal Device, Percutaneous Approach (ICD-10-PCS; 2022-10-04 08:40)
DX: I21.4 Non-ST elevation (NSTEMI) myocardial infarction (principal); I97.630 Postprocedural hematoma of a circulatory system organ or structure following a cardiac catheterization; I12.9 Hypertensive chronic kidney disease with stage 1 through stage 4 chronic kidney disease, or unspecified chronic kidney disease; I25.10 Atherosclerotic heart disease of native coronary artery without angina pectoris; N18.9 Chronic kidney disease, unspecified; K21.9 Gastro-esophageal reflux disease without esophagitis; E78.5 Hyperlipidemia, unspecified; F10.11 Alcohol abuse, in remission; F19.11 Other psychoactive substance abuse, in remission; Z87.891 Personal history of nicotine dependence; Z86.711 Personal history of pulmonary embolism
CPT/HCPCS: 36415; 71046; 71275; 74176; 80048; 80053; 80061; 83690; 83735; 84100; 84484; 85025; 85027; 85380; 85610; 85730; 93005; 93458; 96361; 96374; 96375; 96376; 99285; A9270; C1725; C1769; C1874; C1887; C1894; C8929; C9600; J0461; J0583; J1170; J1644; J1650; J2250; J2270; J3010; J7030; J7040; Q9957; Q9967

== ENCOUNTER 2023-03-18 16:30 | Outpatient (RCR) | payer BC, SELFPAY ==
[2023-02-19 15:22] VITALS: PULSE 73
== END 2023-05-06 15:38 | disposition home or self-care (01) ==
LOC: ANHCPREHAB 16:30
PROVIDERS: PCP Nurse Practitioner Family; Visit Provider Internal Medicine Cardiovascular Disease
DX: Z95.5 Presence of coronary angioplasty implant and graft (principal)
CPT/HCPCS: 93798

== ENCOUNTER 2023-05-22 09:50 | Emergency (ER) | payer BC, SELFPAY ==
--- NOTE | ~2023-05-22 | CT_ITS ---
EXAMINATION: CT abdomen pelvis w con DATE: 05/22/2023 12:27 INDICATION: Abdominal pain. Epigastric pain, nausea. TECHNIQUE: Computed tomography (CT) of the abdomen and pelvis was performed with 100 CC Omnipaque 350 intravenous contrast. Automated exposure control and iterative reconstruction technique were employe d. Exam dose: 642.96 mGy-cm total exam DLP. COMPARISON: 10/04/2022 CT abdomen pelvis FINDINGS: Mild dependent lingular and bilateral lower lobe discoid atelectasis. Infiltrate or consoli dation at the lung bases. Normal heart size. No pericardial or pleural effusion. There is hepatic steatosis. No hepatic, splenic, pancreatic, adrenal or renal space-occupying mass le jason is detected. The gallbladder appears unremarkable. No gallbladder wall thickening or pericholecystic fluid or fat stranding. No bile duct or pancreatic duct dilatation. There is atherosclerotic calcification but normal caliber of the abdominal aorta and iliac and femora l arteries. No intraperitoneal or retroperitoneal or pelvic mass lesion or adenopathy or ascites. Diverticulosis of the left and right colon; no CT evidence of diverticulitis. Normal appendix. There is severe degenerative disc disease at L4-5, moderate degenerative disease at L3-4. No suspicious osteolytic or osteoblastic lesions. IMPRESSION: Hepatic steatosis Normal appendix Diverticulosis of the left and right colon; no evidence of diverticulitis Reviewed, dictated and finalized at [facility]. Reviewed, dictated and finalized at [facility].
[2023-05-22 09:55] VITALS: BP 133/84; PULSE 83; RESP 18; TEMP 36.3; O2SAT 98
--- NOTE | 2023-05-22 10:28 | ED.ABDPAIN ---
HPI - Abdominal Pain General Chief Complaint: Abdominal Pain Stated Complaint: fatigue, abdominal pain, nausea Time Seen by Provider: 05/22/23 10:28 Source: patient Mode of arrival: ambulatory Limitations: no limitations History of Present Illness HPI narrative: patient is a pleasant 53 yo male with a past medical hx of coronary artery disease, chronic kidney disease, GERD, hypertension, NSTEMI, tobacco use who presents emergency department today ambulatory steady gait for evaluation of about 4 days of generalized fatigue, nausea, abdominal discomfort and runny nose. Denies any known exposure to COVID a flu or any other similar illness. He denies chest pain or shortness of breath. Denies dizziness or headache. Denies urinary symptoms. Denies diarrhea, constipation, bloody stool. Denies any visual disturbances, back pain, sore throat, or any other symptoms. Related Data Home Medications Medication Instructions Recorded Confirmed allopurinol 100 mg tablet 100 mg BID 10/03/22 10/03/22 esomeprazole magnesium 20 mg 20 mg PO DAILY 10/03/22 10/03/22 capsule,delayed release (Nexium) ezetimibe 10 mg tablet 10 mg PO DAILY 10/03/22 10/04/22 gabapentin 100 mg capsule 100 mg PO TID 10/03/22 10/04/22 Allergies Allergy/AdvReac Type Severity Reaction Status Date / Time No Known Allergies Allergy Verified 10/03/22 19:25 Review of Systems Review of Systems: CONSTITUTIONAL: Denies fever, chills, or sweats. EYES: Denies visual changes, redness, or discharge. ENT: Denies rhinorrhea, congestion, sore throat, or otalgia. CARDIOVASCULAR: Denies chest pain, palpitations, or edema. RESPIRATORY: Denies cough or dyspnea. GASTROINTESTINAL: Denies abdominal pain, nausea, vomiting, or diarrhea. GENITOURINARY: Denies dysuria or hematuria. SKIN: Denies rash or itching. MUSCULOSKELETAL: Denies back pain, joint pain, or myalgia. NEUROLOGIC: Denies headache, numbness, or weakness. PSYCHIATRIC: Denies anxiety or depression. All systems reviewed & are unremarkable except as noted in HPI and below PMFSH Past Medical History Medical History CAD (coronary artery disease) CKD (chronic kidney disease) GERD (gastroesophageal reflux disease) Hypertension Tobacco abuse Family History Family History Grandparent Diabetes mellitus Mother Lung cancer Sibling Lung cancer Father Hypertension Social History Social History Smoking packs per day: 2 Smoking cigarettes per day: 40.0 Years smoked: 30 Smoking pack-years: 60.00 Smoking status: Former smoker Tobacco type: cigarettes Second hand tobacco smoke exposure: Yes Smoking end date: 05/07/17 Alcohol intake: former Drinks per week: 7 Substance use: former Substance use type: does not use Other substance usage details: recovering addict Lack of Transportation: No Lack of Food: Never True Current Housing: I Have Housing Concerned About Future Housing: No Difficulty Paying Gas/Electric Bills: No Difficulty Paying for Meds: No Currently Unemployed: No Education: High School Diploma/GED Difficulty w/ Childcare or Family Care: No Spiritual care concerns: No Exam Narrative: GENERAL: Well-appearing, well-nourished, and in no acute distress. HEAD: Normocephalic, atraumatic. EYES: PERRLA and EOMI. ENT: Nares clear, no rhinorrhea or epistaxis. Mucous membranes moist. NECK: Supple. CHEST: Clear to auscultation. No respiratory distress. HEART: Regular rate and rhythm. No murmur heard. Normal peripheral pulses. ABDOMEN: Soft, mild tenderness throughout middle/lower abdomen, nondistended, normal active bowel sounds. EXTREMITIES: Normal range of motion. No edema. SKIN: Warm, dry, no rash. NEURO: No focal deficits. Alert and oriented x3. CN II-XII grossly intact PSYCH: Normal mood and
[2023-05-22 10:34] LABS: Basophils Percent Auto 0.8 % (0.2-1.2); Eosinophils Percent Auto 0.2 % (0-4.4); Hematocrit 47.1 % (42.0-52.0); Hemoglobin 16.2 g/dL (14.0-18.0); Immature Granulocyte Absolute 0.01 K/mm3 (0.00-0.031); Immature Granulocyte Percent A 0.2 % (0-0.5); Lymphocytes Absolute Auto 1.15 K/mm3 (0.9-3.2); Lymphocytes Percent Auto 24.1 % (18.3-44.2); Mean Corpuscular HGB Conc 34.4 g/dl (32-36); Mean Corpuscular Hemoglobin 30.3 pg (26-34); Mean Corpuscular Volume 88.2 fl (80-100); Mean Platelet Volume 8.5 fl (7.4-10.4); Monocytes Absolute Auto 0.4 K/mm3 (0.1-0.6); Monocytes Percent Auto 7.9 % (2.6-8.5); Neutrophils Absolute Auto 3.2 K/mm3 (1.3-6.7); Neutrophils Percent Auto 66.8 % (45.5-73.1); Platelet Count Result 177 k/mm3 (150-375); Red Blood Count 5.34 M/mm3 (4.6-6.20); Red Cell Distribution Width 13.6 % (11.5-14.5); White Blood Count 4.8 K/mm3 (4.5-10.0)
[2023-05-22 10:35] LABS: Appearance Urine Clear (Clear); Bilirubin Urine Negative (Negative); Blood Urine Negative (Negative); Color Urine Yellow (Yellow); Glucose Urine UA Negative (Negative); Ketones Urine Negative (Negative); Leukocyte Esterase Ur Negative LEU/UL (Negative); Nitrate Urine Negative (Negative); Protein Urine Negative (Negative); Specific Grav Ur 1.018 (1.001-1.035); Urobilinogen Urine 0.2 mg/dL (<2.0); pH Urine 6.5 (5.0-9.0)
[2023-05-22 10:45] LABS: Alanine Aminotransferase 31 U/L (6-50); Albumin Level 4.8 g/dL (3.5-5.1); Alkaline Phosphatase 58 U/L (38-126); Anion Gap 10 mmol/L (8-16); Aspartate Amino Transferase 38 U/L (17-59); Bilirubin,Total 0.6 mg/dL (0.2-1.3); Blood Urea Nitrogen 8 mg/dL (9-20); Calcium 10.1 mg/dL (8.4-10.2); Carbon Dioxide 27 mmol/L (22-30); Chloride 99 mmol/L (98-107); Estimated CRCL calculation 64 ml/min; Estimated Glomerular Filt Rate 53; Glucose 118 mg/dL (65-110); Lipase 98 U/L (23-300); Potassium 4.3 mmol/L (3.4-5.0); Sodium 136 mmol/L (137-145)
[2023-05-22 10:46] LABS: Add Urine Microscopic? NO
[2023-05-22] MEDS: ONDANSETRON INJ 4 MG/2 ML VIAL IV PUSH (11:55)
[2023-05-22] MEDS: SODIUM CHLORIDE 0.9% IV 1,000 ML 999 ML IV CONT (12:17)
[2023-05-22 12:18] VITALS: BP 132/81; PULSE 82; RESP 19; O2SAT 99
--- NOTE | 2023-05-22 12:20 | PC.NURSE ---
Pt to CT scan via stretcher at this time.
[2023-05-22 12:40] LABS: Influenza A QL RT-PCR Negative (Negative); Influenza B QL RT-PCR Negative (Negative); SARS-CoV-2 RNA PCR Negative (Negative)
[2023-05-22 13:21] VITALS: BP 107/69; PULSE 52; RESP 15; O2SAT 98
== END 2023-05-22 14:12 | disposition home or self-care (01) ==
PROVIDERS: Emergency Medicine; Emergency Provider Nurse Practitioner; PCP Nurse Practitioner Family
DX: B34.9 Viral infection, unspecified (principal); K57.30 Diverticulosis of large intestine without perforation or abscess without bleeding; N17.9 Acute kidney failure, unspecified; R11.2 Nausea with vomiting, unspecified; K76.0 Fatty (change of) liver, not elsewhere classified; Z20.822 Contact with and (suspected) exposure to COVID-19; I12.9 Hypertensive chronic kidney disease with stage 1 through stage 4 chronic kidney disease, or unspecified chronic kidney disease; N18.9 Chronic kidney disease, unspecified; I25.10 Atherosclerotic heart disease of native coronary artery without angina pectoris
CPT/HCPCS: 36415; 74177; 80053; 81003; 83690; 85025; 87636; 96361; 96374; 99284; J2405; J7030; Q9967